=== PATIENT | female | born 1980 | race Caucasian/White ===

== ENCOUNTER → 2019-08-28 11:22 | Outpatient (BNVA) | payer OTHER, SELFPAY | PROVIDERS: PCP Nurse Practitioner Family; Visit Provider Nurse Practitioner | DX: I10 Essential (primary) hypertension (principal); M72.2 Plantar fascial fibromatosis | CPT/HCPCS: 36415; 80053 ==

== ENCOUNTER → 2019-09-27 08:43 | Outpatient (BNVA) | payer OTHER, SELFPAY | PROVIDERS: PCP Nurse Practitioner Family; Referring Provider Nurse Practitioner; Visit Provider Podiatrist Foot & Ankle Surgery | DX: M79.672 Pain in left foot (principal); M79.671 Pain in right foot | CPT/HCPCS: 73630 ==

== ENCOUNTER 2019-10-04 06:57 | Outpatient (CLI) | payer OTHER, SELFPAY ==
--- NOTE | 2019-10-04 07:15 | MR_ITS ---
WS: [id number] MRI LEFT FOOT without CONTRAST. COMPARISON: LEFT foot radiograph 09/27/2019 Multiplanar, multisequence imaging is performed without contrast. Achilles tendon is intact. No signal abnormalities. There is no fluid or abnormal signal within the c alcaneus or the soft tissues along the plantar surface of the foot. No mass or fluid. No thickening o f the plantar aponeurosis. Normal tarsal/metatarsal alignment. No marrow edema or fracture. There is a small amount of fluid at the first metatarsophalangeal joint likely related to bursitis. No erosion identified. No osteochondral lesions. MR/MR foot LT wo con* [id number] IMPRESSION: 1. No marrow edema or soft tissue abnormality. 2. Mild bursitis at the first metatarsophalangeal joint.
== END 2019-10-04 06:58 | disposition home or self-care (01) ==
LOC: RADSHAW 07:02
PROVIDERS: PCP Nurse Practitioner; Visit Provider Podiatrist Foot & Ankle Surgery
DX: M72.2 Plantar fascial fibromatosis (principal); M71.572 Other bursitis, not elsewhere classified, left ankle and foot
CPT/HCPCS: 73718

== ENCOUNTER 2019-10-20 10:00 | Day surgery (SDC) | payer OTHER, SELFPAY ==
[2019-10-19 12:28] VITALS: BMI 41.1
[2019-10-20] VITALS (10 sets, daily range): BP systolic 101–123; BP diastolic 68–86; PULSE 75–94; RESP 14–20; TEMP 36.4–36.9; O2SAT 96–100
[2019-10-20 10:39] LABS: OR HCG Qualitative Urine Negative (Negative)
[2019-10-20] MEDS: sodium chloride 0.9% 1,000 ML 30 ML IV (10:51)
--- NOTE | 2019-10-20 11:17 | ANES.PREANE2 ---
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 Proposed Procedure: Operation Date: 10/20/19 11:20 Proposed Procedures p Plantar Fascia Release 16347 M72.2(Left) - Chris Apple DPM s Gastrocnemius Recession Left Lower Extremity 19325 M21.6X2(Left) - Chris Apple DPM Familial anesthetic complications: None Was Beta Yumiko taken within 24 hours: N/A Last intake: Intake Last Liquid Date 10/19/19 Last Liquid Time 23:30 Last Solid Date 10/19/19 Last Solid Time 13:00 Social: Social History: No alcohol and No tobacco Exam: Pre-Anes Outpt Exam: alert, oriented x 3, clear to auscultation bilaterally and regular rate & rhythm Airway: Cervical ROM: WNL MP: 1 Dentition: Full Pulmonary: Pulmonary: None reported CV/HEM: CV/HEM: HTN : : None reported Hepatic: Hepatic: None reported GI: GI: None reported Metabolic: Metabolic: None reported Musc/skel: Musc/skel: None reported Comments: R foot with plantar pain due to plnatar fasciiits Neuropsych: Neuropsych: Neuropathy Anesthetic Plan: ASA status: 2 Anesthesia: General Risk of > 500 ml blood loss (7ml/kg in children): No Meds/Allergies Current Medications: Current Medications Generic Name Dose Route Start Last Admin Trade Name Freq PRN Reason Stop Dose Admin Sodium Chloride 1,000 mls @ 30 ml s/hr 10/20/19 10:30 10/20/19 10:51 Sodium Chloride 0.9% IV 10/21/19 10:29 30 mls/hr .Q24H ARIEL Administration PFSH Anesthesia PFSH: Social History Smoking and tobacco status: never smoked Second hand smoke exposure: No Alcohol intake: never Desire information about alcohol rehabilitation?: No Counseling given: No Desire information about substance/drug rehabilitation?: No Counseling given: No Female Reproductive History: Date of last menstrual period: 08/09/04 Data Anesthesia Other Labs: Laboratory Results - last 48 hr 10/20/19 10:30 Urine HCG, Qual Negative Cardiac Studies: No Data to Display
--- NOTE | 2019-10-20 11:32 | P.HPUD_ITS ---
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
[2019-10-20] MEDS: morphine 4 mg/mL SDV 1 mL 2 MG IVP (12:51)
[2019-10-20] MEDS: oxyCODONE-APAP 10-325 mg Tablet 1 TAB PO (13:15)
--- NOTE | 2019-10-21 18:48 | P.OP_ITS ---
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 CPT code 47869 and CPT code 71104 Implants: None Pathology: none sent Surgeon: Chris Apple D.P.M. Rv Service Technician: Alexus Anesthesia: General Estimated blood loss: 2 mL IV fluids: None Urine output: None Complications: No complications Findings: Thickening of the plantar fascia left lower extremity as well as gastrocnemius equinus. Condition: stable Brief History: Patient is a 39-year-old female who has had plantar fasciitis for greater than 1 year exhausting conservative measures consisting of stretching exercises, supportive shoes, orthotics, cortisone injections, oral anti- inflammatories, physical therapy, activity modifications. She has had persistent pain for greater than 12 months which affects her everyday life as well as her ability to work comfortably. She is wishing to pursue surgical intervention. Risks include pain, bleeding, numbness, infection, swelling, bruising, surgical site dehiscence, painful scar, keloid, failure to alleviate pain, damage to adjacent soft tissue structures, numbness, paresthesias, risk associated with anesthesia. Procedure: Under mild sedation the patient was brought to the operating room and placed on the operating table in supine position. A timeout was performed. Anesthesia was then administered by the anesthesia service. A well-padded pneumatic tourniquet was applied to the patient's left thigh. Left lower extremity was scrubbed, prepped and draped utilizing normal aseptic technique. Left lower extremity was examined a weighted with an Esmarch bandage and a tourniquet was inflated to 300 mmHg. Attention was directed to the medial left leg at the myotendinous junction of the gastrocnemius muscle this was marked out preoperatively with patient flexing against resistance and visualizing the gastrocnemius muscle belly distally. While loading the left foot this once again palpated in the distal aspect of the gastrocnemius muscle medially was palpated. At the medial leg a 3 cm linear longitudinal incision was made in a vertical fashion with a #15 blade. At this time sharp dissection was carried down through subcutaneous tissue followed by complete blunt dissection only utilizing my fingers down to the gastrocnemius aponeurosis, linear incision was made and I was able to visualize the muscle belly of the gastrocnemius and its accompanying aponeurosis which was cut from lateral to medial under direct visualization with a #15 blade. Incision site was flushed with copious amounts of sterile saline solution. Subcutaneous tissue was closed with 3-0 Vicryl. Skin was closed with 4-0 nylon. Attention was then directed to the left plantar instep of the left foot where skin tension line from medial to lateral was visualized at this tension line a 15 blade was utilized to perform a transverse skin incision at the instep approximately 4 cm in length through skin and subcutaneous tissue. All bleeders were ligated and cauterized as necessary care was taken to retract and preserve all neurovascular tendinous structures. Blunt dissection was carried down to the plantar fascia which was then incised under direct visualization from medial to lateral incising the medial two thirds of the plantar fascia and maintaining the lateral band. Underlying muscle belly of the abductor hallucis was appreciated. A obvious release of the plantar fascia was appreciated as well while loading the forefoot. The incision site was flushed with copious amounts of sterile saline solution. Subcutaneous tissue was reapproximated with 3-0 Vicryl. Skin was closed with 4-0 nylon utilizing a combination of horizontal mattress and simple interrupted sutures. Incision sites were dressed with Adaptic, sterile 4 x 4's, Kerlix and Hzang wrap. Patient was placed into a cam boot. Tourniquet was deflated and a prompt hyperemic response was noted to the distal digits of the left foot. Patient tolerated the procedure well and was transferred to the PACU with vital signs stable and vascular status intact. Following a period of postoperative monitoring she will be discharged home is to be limited weightbearing at this time may heel touch only for transfers and is to elevate her left foot while at rest. She was prescribed Percocet 10/325 mg to be taken as needed every 8 hours for pain she was also provided my cell phone number and is contact me with any postoperative questions or concerns.
== END 2019-10-20 13:58 | disposition home or self-care (01) ==
PROVIDERS: Anesthesiology; PCP Nurse Practitioner; Visit Provider Podiatrist Foot & Ankle Surgery
PROC: (CPT 28899; principal; 2019-10-20 11:20)
PROC: (CPT 27687; 2019-10-20 11:20)
DX: M72.2 Plantar fascial fibromatosis (principal); M21.6X2 Other acquired deformities of left foot; I10 Essential (primary) hypertension; Z82.49 Family history of ischemic heart disease and other diseases of the circulatory system
CPT/HCPCS: 27687; 28008; 12345; 84703; C9290; J0690; J1100; J1885; J2001; J2270; J2405; J2704; J3010; J7030

== ENCOUNTER → 2020-02-08 11:00 | Outpatient (BNVA) | payer OTHER, SELFPAY | PROVIDERS: PCP Nurse Practitioner; Visit Provider Nurse Practitioner Family | DX: I10 Essential (primary) hypertension (principal); R31.9 Hematuria, unspecified | CPT/HCPCS: 81001 ==

== ENCOUNTER → 2020-05-09 12:38 | Outpatient (BNVA) | payer OTHER, SELFPAY | PROVIDERS: PCP Nurse Practitioner; Visit Provider Nurse Practitioner Family | DX: M17.11 Unilateral primary osteoarthritis, right knee (principal); S86.911A Strain of unspecified muscle(s) and tendon(s) at lower leg level, right leg, initial encounter; X58.XXXA Exposure to other specified factors, initial encounter | CPT/HCPCS: 73562 ==

== ENCOUNTER → 2021-03-10 11:37 | Outpatient (BNVA) | payer OTHER, SELFPAY | PROVIDERS: PCP Nurse Practitioner; Visit Provider Nurse Practitioner Family | DX: Z20.822 Contact with and (suspected) exposure to COVID-19 (principal) | CPT/HCPCS: 87635 ==

== ENCOUNTER → 2023-02-25 15:37 | Outpatient (BNVA) | payer OTHER, SELFPAY | PROVIDERS: PCP Nurse Practitioner; Visit Provider Nurse Practitioner Family | DX: M79.671 Pain in right foot (principal) | CPT/HCPCS: 73630 ==

== ENCOUNTER 2024-03-25 16:42 | Outpatient (CLI) | payer OTHER, SELFPAY ==
[2024-03-25 18:09] LABS: Estradiol 28.5 pg/mL; Follicle Stimulating Hormone 91.7 mIU/mL; Progesterone 0.242 ng/mL
== END 2024-03-25 16:43 | disposition home or self-care (01) ==
PROVIDERS: PCP Family Medicine; Visit Provider Obstetrics & Gynecology
DX: Z31.83 Encounter for assisted reproductive fertility procedure cycle (principal)
CPT/HCPCS: 36415; 82670; 83001; 83002; 84144; 84702

== ENCOUNTER → 2024-05-31 10:21 | Outpatient (BNVA) | payer OTHER, SELFPAY | PROVIDERS: PCP Nurse Practitioner Family; Visit Provider Nurse Practitioner Family | DX: M79.672 Pain in left foot (principal) | CPT/HCPCS: 73630 ==